=== PATIENT | female | born 1940 | race Caucasian/White ===

== ENCOUNTER 2017-05-27 17:35 | Inpatient (IN) | payer OTHER ==
[~2017-05-27] VITALS: Ht 160 cm; Wt 49.4 kg
--- NOTE | ~2017-05-27 | EKG ---
[place] [address] [facility] [place] [address] ELECTROCARDIOGRAM REPORT Name: RADHA CASAS Room #: 445-P ADM IN M.R.#: [id number] Admission: 05/28/17 Attend Phys: Jose Alberto Diaz MD Discharge: Date of : 38 Report #: [id number] THIS REPORT FOR: //name// [facility] ED Test Date: 2017-05-27 Test Time: 18:15:07 Pat Name: RADHA CASAS Department: Room: [facility] Gender: F Bakery Clerk: MZOOK : 1940 Requested By: Johnie Mei Order Number: [id number] MD: Guillermo Fagan Measurements Intervals [place] Rate: 74 P: 74 MI: 154 QRS: -27 QRSD: 79 T: 67 QT: 361 QTc: 401 Interpretive Statements Sinus rhythm Borderline left axis deviation Cannot rule out Anteroseptal infarct, age indeterminate No previous ECG available for comparison Electronically Signed On 05-28-2017 8:32:26 CDT by Guillermo Fagan [email or web address] <ELECTRONICALLY SIGNED> By: Guillermo Fagan MD, [facility] 05/28/17 0832 1815 14 Guillermo Fagan MD, [facility] /EPI
[2017-05-27 17:36] VITALS: BP 171/57
[2017-05-27] MEDS ORDERED: TYLENOL325 MG PO (18:23)
[2017-05-27] MEDS ORDERED: ALBUTEROL2.5 MG/31 INH (18:23)
[2017-05-27] MEDS ORDERED: ASPIRIN81 M2 PO (18:24)
[2017-05-27] MEDS ORDERED: TUMS PO (18:25)
[2017-05-27] MEDS ORDERED: CARVEDILOL6.25 MG (18:25)
[2017-05-27 18:26] LABS: ABSOLUTE NEUTROPHILS 6.7 thou/uL (1.4-8.2); BASOPHILS 0.7 % (0.0-2.0); EOSINOPHILS 2.1 % (0.0-3.0); HEMATOCRIT 37.2 % (37.0-47.0); HEMOGLOBIN 12.5 gm/dL (12.0-15.0); LYMPHOCYTES 18.9 % (24.0-44.0); MCH 30.6 pg (26.0-34.0); MCHC 33.7 g/dL (28.0-37.0); MONOCYTES 7.9 % (1.0-8.0); PLATELET COUNT 170 thou/uL (150-400); POLYS 70.4 % (36.0-66.0); RBC 4.09 mil/uL (4.20-5.00); WBC 9.5 thou/uL (4.0-11.0)
[2017-05-27] MEDS ORDERED: KEFLEX500 MG PO (18:26)
[2017-05-27] MEDS ORDERED: ZYRTEC10 M5 PO (18:26)
[2017-05-27 18:27] LABS: MANUAL DIFF NO
[2017-05-27] MEDS ORDERED: VITAMIN D1000 UNI1 PO (18:27)
[2017-05-27] MEDS ORDERED: DEPAKOTE 250MG250 M1 PO (18:27)
[2017-05-27] MEDS ORDERED: REMERON30 MG PO (18:28)
[2017-05-27] MEDS ORDERED: MELATONIN1 MG PO (18:28)
[2017-05-27 18:29] LABS: URINE BILIRUBIN NEGATIVE (Negative); URINE BLOOD NEGATIVE (Negative); URINE COLOR YELLOW; URINE GLUCOSE-RANDOM* NEGATIVE (Negative); URINE KETONES NEGATIVE (Negative); URINE PROTEIN (DIPSTICK) NEGATIVE (Negative); URINE SPECIFIC GRAVITY 1.015 (1.003-1.035); URINE UROBILINOGEN 0.2 E.U./dl (0.2-1.0)
[2017-05-27] MEDS ORDERED: NITROSTAT0.4 MG SUBLING (18:29)
[2017-05-27] MEDS ORDERED: PRAVACHOL20 MG PO (18:29)
[2017-05-27] MEDS ORDERED: SPIRIVA18 MCG INH (18:30)
[2017-05-27 18:33] LABS: ANION GAP 6 mmol/L (7-16); BUN 46 mg/dL (7-18); CALCIUM 9.3 mg/dL (8.5-10.1); CHLORIDE 101 mmol/L (98-107); CO2 30 mmol/L (21-32); GLUCOSE 104 mg/dL (74-106); POTASSIUM 4.7 mmol/L (3.5-5.1); SODIUM 137 mmol/L (136-145)
[2017-05-27 18:35] LABS: URINE LEUKOCYTES-REFLEX TRACE (Negative)
[2017-05-27 18:38] LABS: AMP/METHAMP Negative (Negative); BARBITURATES Negative (Negative); BENZODIAZEPINES Negative (Negative); COCAINE Negative (Negative); METHADONE Negative (Negative); OPIATES Negative (Negative); PCP Negative (Negative); THC Negative (Negative)
[2017-05-27 18:42] LABS: ALBUMIN 3.5 g/dL (3.4-5.0); ALKALINE PHOSPHATASE 70 U/L (46-116); MAGNESIUM 1.8 mg/dL (1.8-2.4); SGOT 46 U/L (15-37); SGPT 30 U/L (30-65); TOTAL BILIRUBIN 0.4 mg/dL (<0.1-1.0); TOTAL PROTEIN 7.3 g/dL (6.4-8.2); TROPONIN-I < 0.04 ng/mL (<0.04-0.07)
[2017-05-28 02:44] VITALS: BP 133/80
[2017-05-28 02:55] VITALS: BP 133/80
[2017-05-28 03:19] VITALS: BP 152/65
[2017-05-28 07:38] VITALS: BP 151/52
[2017-05-28 07:57] LABS: CALCIUM 8.8 mg/dL (8.5-10.1); CREATININE 0.9 mg/dL (0.6-1.0)
[2017-05-28 07:58] LABS: POTASSIUM 3.7 mmol/L (3.5-5.1)
[2017-05-28 15:25] VITALS: BP 122/54
== END 2017-05-28 17:58 | DRG 884 ==
LOC: ER 17:35 → EROBS 05-28 02:30 → 4S 05-28 02:30
PROVIDERS: Emergency Medicine; Nurse Practitioner Family
DX: F03.91 Unspecified dementia, unspecified severity, with behavioral disturbance (principal); I10 Essential (primary) hypertension; E78.5 Hyperlipidemia, unspecified; Z87.440 Personal history of urinary (tract) infections; Z88.8 Allergy status to other drugs, medicaments and biological substances; Z88.5 Allergy status to narcotic agent; Z91.041 Radiographic dye allergy status; Z91.048 Other nonmedicinal substance allergy status; Z91.040 Latex allergy status; Z91.81 History of falling; Z79.899 Other long term (current) drug therapy; Z79.82 Long term (current) use of aspirin; Z88.6 Allergy status to analgesic agent
CPT/HCPCS: 10195